=== PATIENT | male | born 1995 | race African-American/Black ===

== ENCOUNTER 2020-10-02 16:11 | Emergency (ER) | payer OTHER ==
[~2020-10-02] VITALS: Ht 180.3 cm; Wt 81.7 kg
[~2020-10-02 16:11] MED LIST: ACETAMINOPHEN-1 EAC1 PO; KEFLEX250 MG PO; NOHOMEMEDICATIONS
[2020-10-02] MEDS ORDERED: PENICILLIN VK500 M1 PO (17:38)
[2020-10-02] MEDS ORDERED: HYDROCODON-ACE1 EAC7 PO (17:38)
[2020-10-02 17:42] VITALS: BP 126/92
== END 2020-10-02 17:43 | disposition home or self-care (01) ==
LOC: M.ERS 16:11
DX: K02.9 Dental caries, unspecified (principal); F17.210 Nicotine dependence, cigarettes, uncomplicated

== ENCOUNTER 2020-11-22 09:31 | Emergency (ER) | payer OTHER ==
[~2020-11-22] VITALS: Ht 180.3 cm; Wt 81.7 kg
[~2020-11-22 09:31] MED LIST changes: +HYDROCODON-ACE1 EAC7 PO; +PENICILLIN VK500 M1 PO
[2020-11-22 10:43] VITALS: BP 120/60
== END 2020-11-22 10:43 | disposition home or self-care (01) ==
LOC: M.ERS 09:31
DX: R06.02 Shortness of breath (principal); Z20.822 Contact with and (suspected) exposure to COVID-19; F17.210 Nicotine dependence, cigarettes, uncomplicated

== ENCOUNTER 2020-11-26 21:13 | Emergency (ER) | payer OTHER ==
[~2020-11-26] VITALS: Ht 180.3 cm; Wt 81.7 kg
[2020-11-26 23:23] LABS: ABSOLUTE LYMPHOCYTES 1.7 thou/uL (0.8-5.3); ABSOLUTE MONOCYTES 1.2 thou/uL (0.0-1.2); ABSOLUTE NEUTROPHILS 8.6 thou/uL (1.6-8.1); BASOPHILS 0.3 %; EOSINOPHILS 0.4 %; HEMATOCRIT 44.1 % (42.0-52.0); HEMOGLOBIN 15.2 gm/dL (14.0-18.0); LYMPHOCYTES 14.7 %; MCH 32.4 pg (26.0-34.0); MCHC 34.5 g/dL (28.0-37.0); MONOCYTES 10.3 %; MPV 7.8 fl. (7.2-11.1); NUCLEATED RBCS 0 /100WBC; PLATELET COUNT* 246 thou/uL (150-400); POLYS 74.3 %; RBC 4.69 mil/uL (4.50-6.00); RDW-CV 13.1 % (10.5-14.5); WBC 11.5 thou/uL (4.0-11.0)
[2020-11-26 23:25] LABS: CALCIUM 9.1 mg/dL (8.5-10.1); CREATININE 1.2 mg/dL (0.6-1.3); POTASSIUM 3.7 mmol/L (3.5-5.1)
[2020-11-26] MEDS ORDERED: CLEOCIN HCL300 MG PO (23:39)
[2020-11-26] MEDS ORDERED: TRAMADOL 50 MG50 MG PO (23:39)
[2020-11-26 23:55] VITALS: BP 139/88
== END 2020-11-26 23:55 | disposition home or self-care (01) ==
LOC: M.ERS 21:13
PROVIDERS: Emergency Medicine
DX: K04.7 Periapical abscess without sinus (principal); F17.210 Nicotine dependence, cigarettes, uncomplicated

== ENCOUNTER 2021-01-24 18:25 | Emergency (ER) | payer OTHER ==
[~2021-01-24] VITALS: Ht 177.8 cm; Wt 81.7 kg
[~2021-01-24 18:25] MED LIST changes: +CLEOCIN HCL300 MG PO; +TRAMADOL 50 MG50 MG PO
[2021-01-24 18:31] VITALS: BP 121/72
== END 2021-01-24 19:27 | disposition home or self-care (01) ==
LOC: M.ERS 18:25
DX: U07.1 COVID-19 (principal); F17.210 Nicotine dependence, cigarettes, uncomplicated